=== PATIENT | female | born 1990 | race Asian ===

== ENCOUNTER 2018-01-10 17:08 | Emergency (ER) | payer OTHER ==
[~2018-01-10] VITALS: Ht 152.4 cm; Wt 86.2 kg
--- NOTE | 2018-01-10 17:28 | ED SKIN/ALLERGY COMPLAINT ---
History of Present Illness General Chief Complaint: General Adult Stated Complaint: NEEDLE STICK Source: patient Exam Limitations: no limitations Vital Signs & Intake/Output Vital Signs & Intake/Output Vital Signs Date Time Temp Pulse Resp B/P B/P Pulse O2 O2 Flow FiO2 Mean Ox Delivery Rate 01/10 1713 99.1 78 18 112/76 97 Room Air Allergies Coded Allergies: No Known Allergies (01/10/18) Triage Note: PT STATES SHE STUCK HERSELF WITH AN INSULIN NEEDLE AFTER GIVING HER PT INSULIN. Triage Nurses Notes Reviewed? yes Onset: Abrupt Duration: constant Timing: single episode today Severity: mild Severity Numbers: 1 : No Patient currently breastfeeds: No HPI: Patient is a 27-year-old female while at work today as he had a [facility] employee she administered subcutaneous insulin to the patient and then accidentally struck the palmar aspect of her left hand with the same needle resulting in a puncture wound in which bleeding was immediately controlled patient clean the wound patient was advised to present to emergency room. Patient currently denies any symptoms of pain tetanus is up-to-date There is a known source patient (Elgin Bell) Past History Travel History Traveled to [place] past 21 day No Medical History Any Pertinent Medical History? none Surgical History Surgical History: non-contributory Psychosocial History What is your primary language Syrian Tobacco Use: Never used ETOH Use: denies use Illicit Drug Use: denies illicit drug use Family History Hx Contributory? No (Elgin Bell) Review of Systems Review of Systems Constitutional: Reports: no symptoms. EENTM: Reports: no symptoms. Respiratory: Reports: no symptoms. Cardiovascular: Reports: no symptoms. GI: Reports: no symptoms. Genitourinary: Reports: no symptoms. Musculoskeletal: Reports: no symptoms. Skin: Reports: see HPI. Neurological/Psychological: Reports: no symptoms. Hematologic/Endocrine: Reports: no symptoms. Immunologic/Allergic: Reports: no symptoms. All Other Systems: Reviewed and Negative (Elgin Bell) Physical Exam Physical Exam General Appearance: no apparent distress, alert, comfortable Head: atraumatic Eyes: Bilateral: normal appearance. Ears, Nose, Throat: hearing grossly normal Neck: normal inspection Respiratory: no respiratory distress Cardiovascular: regular rate/rhythm Peripheral Pulses: 2+ radial (L) Neurologic/Psych: no motor/sensory deficits, awake Skin: intact, normal color, warm/dry (Elgin Bell) Progress Differential Diagnosis: abscess/cellulitis Plan of Care: Orders Procedure Date/time Status HIV EXPOSURE/NEEDLESTICK 01/10 1729 Complete HUMAN BETA HCG SCREEN 01/10 1729 Complete HEPT C ANTIBODY 01/10 1729 Complete HEPT B SURFACE ANTIBODY 01/10 1729 Complete GAMMA GLUTAMYL TRANSFERASE 01/10 1729 Complete COMPREHENSIVE METABOLIC PANEL 01/10 1729 Complete CBC WITHOUT DIFFERENTIAL 01/10 1729 Complete TRNSFRASE ASPART AMINO 01/10 1729 Complete TRNSFRAS ALANINE AMINO 01/10 1729 Complete Laboratory Tests 01/10/181736: Anion Gap 13, Estimated GFR > 60, BUN/Creatinine Ratio 25.0, Glucose 103 H, Calcium 9.8, Total Bilirubin 0.2, GGT 27, AST 20, ALT 28, Alkaline Phosphatase 47, Total Protein 7.6, Albumin 4.3, Globulin 3.3, Albumin/Globulin Ratio 1.3, Total Beta HCG NEGATIVE, CBC w Diff NO MAN DIFF REQ, RBC 4.71, MCV 87.1, MCH 29.2, MCHC 33.5, RDW 13.3, MPV 7.7, Gran % 66.4, Lymphocytes % 27.4, Monocytes % 4.4, Eosinophils % 1.3, Basophils % 0.5, Absolute Granulocytes 9.1 H, Absolute Lymphocytes 3.7 H, Absolute Monocytes 0.6, Absolute Eosinophils 0.2, Absolute Basophils 0.1, Hep Bs Antibody NONREACTIVE, Hepatitis C Antibody NONREACTIVE, HIV 1&2 Antibody NONREACTIVE On examination the wound to left hand is a well-healing puncture wound no signs of infection or foreign body no bleeding Patient was given information on HIV prophylaxis and transmission right where she was aware of all the information and declines HIV prophylaxis at this time the source patient does consent to blood work Patient received preliminary blood work in the emergency room Patient was strongly advised to follow-up with discharge injection the plan and she will comply (Elgin Bell) Departure Departure Disposition: HOME OR SELF CARE Condition: Stable Clinical Impression Primary Impression: Needle stick injury of finger of left hand Additional Instructions: As discussed call [facility] emergency room tomorrow to find out results of your blood work and the source blood work. If symptoms worsen or if YOU develop new concerning symptom return to emergency, follow-up on Saturday with [facility]. Departure Forms: Customer Survey General Discharge Information (Elgin Bell) PA/MANUFACTURING ENGINEERING TECHNICIAN Co-Sign Statement Statement: ED Attending supervision documentation- [] I saw and evaluated the patient. I have also reviewed all the pertinent lab results and diagnostic results. I agree with the findings and the plan of care as documented in the PA's/MANUFACTURING ENGINEERING TECHNICIAN's documentation. [x] I have reviewed the ED Record and agree with the PA's/MANUFACTURING ENGINEERING TECHNICIAN's documentation. [] Additions or exceptions (if any) to the PAs/MANUFACTURING ENGINEERING TECHNICIAN's note and plan are summarized below: [] (Jose Ruano DO
[2018-01-10 18:24] LABS: ABSOLUTE BASOPHIL COUNT 0.1 /CUMM (0.0-0.2); ABSOLUTE EOSINOPHIL COUNT 0.2 /CUMM (0.0-0.7); ABSOLUTE GRANULOCYTE CT 9.1 /CUMM (1.4-6.5); ABSOLUTE LYMPH COUNT 3.7 /CUMM (1.2-3.4); ABSOLUTE MONOCYTE COUNT 0.6 /CUMM (0.10-0.60); BASOPHIL % 0.5 % (0.0-2.0); EOSINOPHIL % 1.3 % (0-5); HEMATOCRIT 41.1 % (37-47); MEAN CORPUSCULAR HGB 29.2 PG (27.0-31.0); MEAN CORPUSCULAR HGB CONC 33.5 G/DL (33.0-37.0); MEAN CORPUSCULAR VOLUME 87.1 FL (81.0-99.0); MEAN PLATELET VOLUME 7.7 FL (7.4-10.4); PLATELET COUNT 505 /CUMM (130-400); RBC DISTRIBUTION WIDTH 13.3 % (11.5-14.5); RED BLOOD CELL CT 4.71 /CUMM (4.20-5.40); WHITE BLOOD CELL COUNT 13.6 /CUMM (4.8-10.8)
[2018-01-10 18:26] LABS: GRANULOCYTE % 66.4 % (42.2-75.2)
== END 2018-01-10 18:43 ==
LOC: ERH 17:08
PROVIDERS: Physician Assistant
DX: S61.432A Puncture wound without foreign body of left hand, initial encounter (principal); W46.1XXA Contact with contaminated hypodermic needle, initial encounter; Y93.89 Activity, other specified; Y92.239 Unspecified place in hospital as the place of occurrence of the external cause
CPT/HCPCS: 86803; 87389